=== PATIENT | male | born 1955 ===

== ENCOUNTER 2024-08-05 10:05 | Outpatient (CLI) | payer OTHER ==
[2024-08-05 11:27] LABS: HEMATOCRIT 43.9 % (39.0-48.0); HEMOGLOBIN 15.6 g/dL (13-16.00); MEAN CELL VOLUME 91.1 fL (80.0-100.00); MEAN CORPUSCULAR HEMOGLOBIN 32.3 pg (27.00-32.0); MEAN CORPUSCULAR HGB CONC 35.4 g/dl (32.0-36.0); PLATELET COUNT 202 K/uL (150-450); RED BLOOD COUNT 4.82 M/uL (4.00-6.00); RED CELL DISTRIBUTION WIDTH 13.2 % (11.5-14.5)
[2024-08-05 11:42] LABS: URINE APPEARANCE Clear; URINE BILIRRUBIN Negative (NEGATIVE); URINE COLOR Yellow; URINE KETONE Trace (NEGATIVE); URINE LEUKOCYTE Negative; URINE NITRATE Negative; URINE PROTEIN Negative (NEGATIVE); URINE UROBILINOGEN 0.2 E.U./dl
[2024-08-05 11:43] LABS: INR 1.01; PARTIAL THROMBOPLASTIN TIME 26.9 SECONDS (22.0-34.0)
[2024-08-05 11:51] LABS: URINE BACTERIA 78.3 uL (0.0-1933); URINE EPITHELIAL CELLS 2.2 uL (0.0-38.8); URINE RBC 24.2 uL (0.0-20.8)
[2024-08-05 12:01] LABS: URINE BLOOD TRACES; URINE GLUCOSE >=1000 MG/DL (NEGATIVE); URINE WBC 1.2 uL (0.0-23.2)
[2024-08-05 12:20] LABS: CALCIUM 8.6 mg/dL (8.5-10.1); CREATININE SERUM 0.89 mg/dL (0.70-1.30); POTASSIUM 3.62 mEq/L (3.5-5.1)
== END 2024-08-05 10:06 | disposition home or self-care (01) ==
LOC: RAD 10:05
PROVIDERS: ATTEND Surgery
DX: K40.20 Bilateral inguinal hernia, without obstruction or gangrene, not specified as recurrent (principal); Z01.818 Encounter for other preprocedural examination

== ENCOUNTER 2024-08-20 05:22 | Day surgery (SDC) | payer OTHER ==
[2024-08-13 12:09] VITALS: BP 161/78
[~2024-08-20] VITALS: Ht 177.8 cm; Wt 83.9 kg
[2024-08-20] MEDS ORDERED: CEFTRIAXONE SODIUM 2,000 MG VIAL ONE (07:00)
[2024-08-20] MEDS ORDERED: ENOXAPARIN SODIUM 40 MG/0.4 ML SYRINGE SUBCUTANEO ONE (07:00)
[2024-08-20] MEDS ORDERED: METRONIDAZOLE/SODIUM CHLORIDE 500 MG/100 ML PIGGYBACK IV ONE (07:04)
[2024-08-20] MEDS ORDERED: SUGAMMADEX SODIUM 200 MG/2 ML VIAL IV ONE (09:03)
[2024-08-20] MEDS ORDERED: POLY119PG PO (10:02)
[2024-08-20] MEDS ORDERED: PERCOCET 5-3251 EACH PO (10:02)
[2024-08-20] MEDS ORDERED: NEURONTIN300 MG PO (10:02)
[2024-08-20] MEDS ORDERED: CELEBREX200MG PO (10:02)
[2024-08-20] MEDS ORDERED: MORPHINE SULFATE 4 MG/ML VIAL IV ONE (10:30)
== END 2024-08-20 12:45 | disposition home or self-care (01) ==
LOC: CIR.AMB 05:22
PROVIDERS: ATTEND Surgery
DX: K40.20 Bilateral inguinal hernia, without obstruction or gangrene, not specified as recurrent (principal); E11.9 Type 2 diabetes mellitus without complications
CPT/HCPCS: 49650; C1781